=== PATIENT | male | born 1975 | race African-American/Black ===

== ENCOUNTER → 2017-11-01 | Outpatient (CLI) | payer MEDICAID ==
[~2017-11-01] VITALS: Ht 185.4 cm; Wt 104.0 kg
[~2017-11-01] MED LIST: CARV6.2534 PO; LASIX PO; SIMV-259 PO; SPIR25 PO; VALS80TA2 PO; WARF2.5 PO
[2017-11-01 10:06] VITALS: BP 85/76
== END | disposition home or self-care (01) ==
LOC: SRCNTR 09:50
PROVIDERS: ATTEND Internal Medicine Clinical Cardiac Electrophysiology
DX: Z45.02 Encounter for adjustment and management of automatic implantable cardiac defibrillator (principal); I11.0 Hypertensive heart disease with heart failure; I50.9 Heart failure, unspecified; I25.10 Atherosclerotic heart disease of native coronary artery without angina pectoris; Z79.01 Long term (current) use of anticoagulants
CPT/HCPCS: G0463

== ENCOUNTER 2022-08-19 03:31 | Emergency (ER) | payer MEDICARE, OTHER ==
[~2022-08-19] VITALS: Ht 188 cm; Wt 113.6 kg
[~2022-08-19 03:31] MED LIST changes: +SPIR-37 PO; -SPIR25 PO; -WARF2.5 PO; +WARF2.5T38 PO
[2022-08-19 03:38] VITALS: BP 132/76
[2022-08-19] MEDS ORDERED: PERTUSS(ACELL),DIPH,TET VAC/PF 0.5 ML SYRINGE IM. ONE (03:45)
[2022-08-19] MEDS ORDERED: CeFAZolin 1 GM/DEXTROSE 100 ML IV ONE (03:54)
[2022-08-19] MEDS ORDERED: CeFAZolin 2 GM/DEXTROSE 50 ML IV ONE (04:00)
== END 2022-08-19 03:45 | disposition short-term general hospital (02) ==
LOC: EMS 03:31
DX: S11.91XA Laceration without foreign body of unspecified part of neck, initial encounter (principal); I25.10 Atherosclerotic heart disease of native coronary artery without angina pectoris; I10 Essential (primary) hypertension; Z98.890 Other specified postprocedural states; W26.0XXA Contact with knife, initial encounter; Y93.89 Activity, other specified; Y92.89 Other specified places as the place of occurrence of the external cause; Y99.8 Other external cause status
CPT/HCPCS: 99285; 96374; 90715; 90471; J0690